=== PATIENT | male | born 1960 | race Caucasian/White ===

== ENCOUNTER 2020-02-22 08:19 | Emergency (ER) | payer OTHER, SELFPAY ==
[2020-02-22 08:25] VITALS: BP 150/81; PULSE 63; RESP 16; TEMP 36.4; O2SAT 98; BMI 31.7
--- NOTE | 2020-02-22 09:12 | DI.CT.S_ITS ---
PROCEDURE: CT CHEST ABD PEL WO CON INDICATIONS: Trauma/fall/attention right side/hips and pelvis TECHNIQUE: After the administration of oral contrast, 5 mm thick sections acquired from the lung apices to the symphysis pubis. 5 mm thick coronal and sagittal reformats acquired, with additional 7 mm coronal MIP reformats through the lungs. For radiation dose reduction, the following was used: automated exposure control, adjustment of mA and/or kV according to patient size. COMPARISON: None. FINDINGS: Image quality: Diagnostic. CHEST: Lungs and pleura: No acute pulmonary opacities. No pleural effusions or pneumothorax. Central and peripheral airways are patent are normal in caliber. Mediastinum: Heart size is normal. No pericardial effusion. No mediastinal adenopathy by CT size criteria. Thoracic aorta and central pulmonary arteries are normal in size. Esophagus is normal in caliber. No hiatal hernia. Chest wall and bones: No axillary or supraclavicular adenopathy by size criteria. Thyroid gland is not enlarged adequately evaluated. No acute fracture or dislocation of the osseous structures of the chest are evident. The vertebral bodies heights are well-maintained throughout the imaged cervicothoracic spine. Minimal bilateral gynecomastia is present. ABDOMEN: Solid organs: Numerous hypodense foci are identified within the liver, which demonstrate imaging characteristics that suggest multiple cysts. No definitive solid liver lesions are evident. However, the solid organs are not adequately evaluated without intravenous contrast. The adrenals, spleen, pancreas, and kidneys are within normal limits. Indication for right renal cyst is noted. Peritoneum and bowel: There may be a small hiatal hernia. The stomach is otherwise unremarkable. Small bowel loops are nondilated. The appendix is well-visualized and normal. There is a moderate amount of residual stool identified within the colon. There is no free fluid, loculated fluid collection, or free air. Nodes and vessels: No retroperitoneal or mesenteric adenopathy by size criteria. Aorta and inferior vena cava are normal in size. Bones: No acute fracture or suspicious osseous lesion is identified. Mild to moderate multilevel facet degenerative changes are noted. The vertebral body heights are well-maintained. PELVIS: Genitourinary: Bladder wall thickness is normal. The prostate is not enlarged. Miscellaneous: There is a small fat containing left inguinal hernia. No right inguinal hernia is evident. There is no free fluid, loculated fluid collection, free air, or lymphadenopathy evident within the pelvis. Bones: No suspicious bony lesions. No acute pelvic fractures are identified. Specifically, there is no fracture evident involving the right hip. The sacroiliac joints are well-maintained. There mild degenerative changes of the pelvic joints. IMPRESSION: 1. No acute fractures of the chest, abdomen, or pelvis. 2. No evidence of solid organ injury is evident on this noncontrast study. 3. Hepatic and right renal cysts. 4. Possible mild constipation. 5. Small fat containing left inguinal hernia. Dictated by: Nael Dhaliwal M.D. on 02/22/2020 at 8:34 Approved by: Nael Dhaliwal M.D. on 02/22/2020 at 8:52
--- NOTE | 2020-02-22 09:14 | ED.LOWEXIN ---
HPI - Extremity Injury (Lower) General Chief Complaint: Extremity Injury, Lower Stated Complaint: rt knee/hip/mid to low back pain x1 day Time Seen by Provider: 02/22/20 08:29 Source: patient Mode of arrival: Wheelchair Limitations: no limitations Related Data Allergies Allergy/AdvReac Type Severity Reaction Status Date / Time No Known Drug Allergies Allergy Verified 02/22/20 08:38 Review of Systems Constitutional Constitutional: Denies chills, Denies fatigue, Denies fever(s), Denies frequent falls, Denies lethargy and Denies weakness Eyes Eyes: Denies change in vision, Denies eye discharge, Denies irritation and Denies loss of vision ENT Ears, Nose, Mouth, and Throat: Denies change in voice, Denies dizziness, Denies neck pain, Denies sore throat and Denies throat swelling Cardiovascular Cardiovascular: Denies chest pain, Denies irregular heart rhythm, Denies lightheadedness, Denies palpitations, Denies dyspnea, Denies dyspnea on exertion and Denies orthopnea Respiratory Respiratory: Denies cough, Denies dyspnea, Denies dyspnea on exertion and Denies wheezing Gastrointestinal Gastrointestinal: Denies abdominal pain, Denies change in bowel habits, Denies diarrhea, Denies nausea and Denies vomiting Musculoskeletal Musculoskeletal: Denies neck pain and Denies numbness Integumentary/Breasts Skin/Breast: Denies pruritus, Denies erythema, Denies rash and Denies wounds Neurologic Neurologic: Denies behavioral changes, Denies confusion, Denies dizziness, Denies frequent falls, Denies loss of vision, Denies numbness and Denies weakness Psychiatric Psychiatric: Denies anxiety, Denies behavioral changes, Denies confusion, Denies depression, Denies homicidal ideation and Denies suicidal ideation Endocrine Endocrine: Denies fatigue, Denies flushing and Denies palpitations Hematologic/Lymphatic Hematologic/Lymphatic: Denies easy bruising Allergic/Immunologic Allergic/Immunologic: Denies urticaria, Denies throat swelling and Denies wheezing Patient History Social History Smoking Status: Never smoker Smoking Status: Never smoker alcohol intake frequency: 0-2 drinks per day Substance Use Type: does not use Exam Initial Vital Signs Initial Vital Signs: Vital Signs Temperature 97.5 F L 02/22/20 08:25 Pulse Rate 63 02/22/20 08:25 Respiratory Rate 16 02/22/20 08:25 Blood Pressure 150/81 H 02/22/20 08:25 Pulse Oximetry 98 02/22/20 08:25 Const General: cooperative and well developed Nutritional Appearance: well nourished [facility] Head: normocephalic and atraumatic Ears: external ears normal and TM's normal bilaterally Nose: external nose normal and No nasal discharge Face and sinus: sinuses nontender, face symmetric, no sinus tenderness and No dry mucous membranes Mouth: oral mucosae normal and moist mucous membranes Teeth and gingiva: dentition normal Throat: tonsils normal and uvula midline Eyes General: appearance normal, both eyes and all related structures Eyelids: eyelids normal Conjunctivae: conjunctivae normal Sclera: sclerae normal Pupils: PERRL EOM: EOM intact bilaterally Neck Neck: normal visual inspection, trachea midline, No lymphadenopathy, No midline deformity and No JVD Lymphatic: No lymphedema Chest Chest: normal inspection of the chest Resp Effort & Inspection: normal respiratory effort, able to speak in complete sentences, no respiratory distress and no use of accessory muscles Auscultation: clear to auscultation bilaterally, no rales, no rhonchi and no wheezes Cardio Rate: regular rate Rhythm: regular rhythm Heart Sounds: no click, no gallops, no murmurs and no rubs Pulses: normal peripheral pulses GI Inspection: non-distended Palpation: soft, no hepatosplenomegaly, No guarding, No pulsatile mass and No tender Auscultation: normal bowel sounds Back/Spine/Pelvis Back: No CVA tenderness Cervical Spine: cervical ROM normal and No pain with cervical ROM Thoracic/Lumbar Spine: thoracic and lumbar spine normal to inspection Skin General: no rashes or lesions noted, No jaundice and No petechiae Neuro General: patient alert, patient oriented x3, gait normal and no focal motor deficits Speech: speech normal Extrem General: full ROM, no clubbing, cyanosis or edema, no pedal edema and no calf tenderness Psych Appearance: well kempt Mental Status: mental status grossly normal Attitude: cooperative Thought Content: normal and suicidality Judgment: judgment good Course Orders Ordered: ED Orders 02/22/20 09:12 CT abdomen pelvis wo con Stat CT chest wo con Stat 02/22/20 09:13 XR knee RT 1to2V Stat XR wrist RT 2V Stat Discontinued Medications Ketorolac Tromethamine (Toradol) 60 mg IM NOW ONE Stop: 02/22/20 09:07 Vital Signs Vital signs: Vital Signs - 8 hr 02/22/20 08:25 Temperature 97.5 F L Pulse Rate 63 Respiratory Rate 16 Blood Pressure 150/81 H Pulse Oximetry 98
--- NOTE | 2020-02-22 09:15 | ED_ITS ---
HPI - Fall General Chief Complaint: Extremity Injury, Lower Stated Complaint: rt knee/hip/mid to low back pain x1 day Time Seen by Provider: 02/22/20 08:29 Source: patient and family Mode of arrival: Wheelchair History of Present Illness HPI Narrative: Patient complains pain to the right lower back right posterior ribs right wrist and pain to the right knee since falling off his truck yesterday. Denies denies hitting head. Denies any chest abdominal pain. Denies any head or neck pain. No altered mental status. No numbness tingling. Right knee feels weak when he stands up. No saddle paresthesia. No bowel or bladder incontinence. No feet or limb numbness or tingling. Related Data Previous Rx's Medication Instructions Recorded cyclobenzaprine 10 mg PO TID PRN #20 tab 02/22/20 ibuprofen 600 mg PO Q6H PRN #20 tab 02/22/20 Allergies Allergy/AdvReac Type Severity Reaction Status Date / Time No Known Drug Allergies Allergy Verified 02/22/20 08:38 Review of Systems Review of Systems Narrative: GENERAL: Denies chills, fatigue, malaise, fever, sweats. HEENT: Denies sinus pain, ear pain, sore throat, difficulty swallowing, dizziness. RESPIRATORY: Denies dyspnea, cough, wheezing, hemoptysis, sputum. CARDIOVASCULAR: Denies chest pain, palpitations, orthopnea, edema, GASTROINTESTINAL: Denies nausea, vomiting, abdominal pain, diarrhea, constipation, melena. : Denies dysuria, frequency, incontinence, hematuria, urinary retention. MUSCULOSKELETAL: Complains back pain/right knee pain/right hip pain SKIN: Denies rash, skin lesions, or other NEUROLOGIC: Denies weakness, headache, numbness, change in speech, confusion, se izures, incoordination. PSYCHIATRIC: No concerning psychosocial issues. ROS Unobtainable: All systems reviewed & are unremarkable except as noted in HPI and below Patient History Social History Smoking Status: Never smoker Smoking Status: Never smoker alcohol intake frequency: 0-2 drinks per day Substance Use Type: does not use Exam Narrative Exam Narrative: GENERAL: patient appears stated age. Well-nourished, well- developed patient, in no distress, not toxic short pants and socks and shoes removed HEAD: Atraumatic. Normocephalic. EYES: Pupils equal round and reactive. Extraocular motions intact. No scleral icterus. No injection or drainage. ENT: Nose without bleeding, purulent drainage. Throat without erythema, tonsillar hypertrophy or exudate. Airway patent. NECK: Trachea midline. Non tender no midline tenderness or step-off. Full activ e range of motion without numbness tingling weakness or pain. CARDIOVASCULAR: Regular rate and rhythm without murmurs, gallops, or rubs. Chest nontender RESPIRATORY: Clear to auscultation. Breath sounds equal bilaterally. No wheezes, rales, or rhonchi. GASTROINTESTINAL: Abdomen soft, non-tender, nondistended. EXTREMITIES: Mild tenderness to the right hip with overlying small bruise but full active range of motion of the hip without pain. Nontender right knee no edema no erythema no skin injury. On standing at bedside right knee feels weak and unable to bear weight. Right leg warm soft and pain with light touch intact in toes. Strong right patellar reflex. Strong pedal pulse. Pelvis is stable nontender. BACK: Nontender without deformity or crepitance. No flank tenderness. Tender ness the right lower posterior ribs but no crepitus or flail. No skin injury. There is no no midline tenderness or step-off of the thoracic or lumbar spine. Mild right lower back paralumbar muscle tenderness NEURO: AOx3. Stood patient bedside but unable to bear weight on the right foot due to right knee feeling weak. Able to bring his right foot fully off the floor with no footdrop SKIN: No rash or erythema of visible areas Initial Vital Signs Initial Vital Signs: Vital Signs Temperature 97.5 F L 02/22/20 08:25 Pulse Rate 63 02/22/20 08:25 Respiratory Rate 16 02/22/20 08:25 Blood Pressure 150/81 H 02/22/20 08:25 Pulse Oximetry 98 02/22/20 08:25 Course Course Course Narrative: Time 11:36 a.m.. After Toradol shot patient able to stand. Able to walk no foot drop. However right knee still feels weak. Spoke with patient and . Will need to follow up with his primary care physician's week for recheck and possible MRI if not improving. He has used Flexeril past for muscle relief. Orders Ordered: Discontinued Medications Ketorolac Tromethamine (Toradol) 60 mg IM NOW ONE Stop: 02/22/20 09:07 Last Admin: 02/22/20 09:17 Dose: 60 mg Documented by: MICHELLE Vital Signs Vital signs: Vital Signs - 8 hr 02/22/20 11:19 Pulse Rate 55 L Respiratory Rate 16 Blood Pressure [Left Arm] 126/72 Pulse Oximetry 98 MDM - Fall Differential Diagnosis Differential diagnosis: Likely other (Wrist sprain right hip contusion lumbar strain lumbar disc herniation rib fracture) Imaging Data CT scan - abdomen/pelvis: Radiologist's Impression: [address] [address] [address] Scan Report Signed Patient: Dioni Kirk GMR#: [id number] : 1960cct:[id number] Age/Sex: 60 / MDate of Service: 02/22/20 Loc: ED Accession Number: [id number] Procedure: CT chest abd pel wo con Ordering Provider: Jl Ross MD PROCEDURE: CT CHEST ABD PEL WO CON INDICATIONS: Trauma/fall/attention right side/hips and pelvis TECHNIQUE: After the administration of oral contrast, 5 mm thick sections acquired from the lung apices to the symphysis pubis. 5 mm thick coronal and sagittal reformats acquired, with additional 7 mm coronal MIP reformats through the lungs. For radiation dose reduction, the following was used: automated exposure control, adjustment of mA and/or kV according to patient size. COMPARISON: None. FINDINGS: Image quality: Diagnostic. CHEST: Lungs and pleura: No acute pulmonary opacities. No pleural effusions or pneumothorax. Central and peripheral airways are patent are normal in caliber. Mediastinum: Heart size is normal. No pericardial effusion. No mediastinal adenopathy by CT size criteria. Thoracic aorta and central pulmonary arteries are normal in size. Esophagus is normal in caliber. No hiatal hernia. Chest wall and bones: No axillary or supraclavicular adenopathy by size criteria. Thyroid gland is not enlarged adequately evaluated. No acute fracture or dislocation of the osseous structures of the chest are evident. The vertebral bodies heights are well-maintained throughout the imaged cervicothoracic spine. Minimal bilateral gynecomastia is present. ABDOMEN: Solid organs: Numerous hypodense foci are identified within the liver, which demonstrate imaging characteristics that suggest multiple cysts. No definitive solid liver lesions are evident. However, the solid organs are not adequately evaluated without intravenous contrast. The adrenals, spleen, pancreas, and kidneys are within normal limits. Indication for right renal cyst is noted. Peritoneum and bowel: There may be a small hiatal hernia. The stomach is otherwise unremarkable. Small bowel loops are nondilated. The appendix is well- visualized and normal. There is a moderate amount of residual stool identified within the colon. There is no free fluid, loculated fluid collection, or free air. Nodes and vessels: No retroperitoneal or mesenteric adenopathy by size criteria. Aorta and inferior vena cava are normal in size. Bones: No acute fracture or suspicious osseous lesion is identified. Mild to moderate multilevel facet degenerative changes are noted. The vertebral body heights are well-maintained. PELVIS: Genitourinary: Bladder wall thickness is normal. The prostate is not enlarged. Miscellaneous: There is a small fat containing left inguinal hernia. No right inguinal hernia is evident. There is no free fluid, loculated fluid collection, free air, or lymphadenopathy evident within the pelvis. Bones: No suspicious bony lesions. No acute pelvic fractures are identified. Specifically, there is no fracture evident involving the right hip. The sacroiliac joints are well-maintained. There mild degenerative changes of the pelvic joints. IMPRESSION: 1. No acute fractures of the chest, abdomen, or pelvis. 2. No evidence of solid organ injury is evident on this noncontrast study. 3. Hepatic and right renal cysts. 4. Possible mild constipation. 5. Small fat containing left inguinal hernia. Dictated by: Nael Dhaliwal M.D. on 02/22/2020 at 8:34 Approved by: Nael Dhaliwal M.D. on 02/22/2020 at 8:52 Extremity x-ray #1: My Impression: Right wrist Radiologist's Impression: [address] [address] XRay Report Signed Patient: Dioni Kirk GMR#: [id number] : 1Acct:[id number] Age/Sex: 60 / MDate of Service: 02/22/20 Loc: ED Accession Number: [id number] Procedure: XR wrist RT 2V Ordering Provider: Jl Ross MD PROCEDURE: XR WRIST RT 2V INDICATIONS: Fall/pain TECHNIQUE: 3 views of the wrist were acquired. COMPARISON: None. FINDINGS: Bones: No fractures or dislocations. No suspicious bony lesions. There appear to be degenerative cystic changes involving the radial aspect of the lunate. Soft tissues: No suspicious soft tissue calcifications. IMPRESSION: No acute osseous abnormality of the right wrist. Dictated by: Nael Dhaliwal M.D. on 02/22/2020 at 9:06 Approved by: Nael Dhaliwal M.D. on 02/22/2020 at 9:06 Extremity x-ray #2: My Impression: Right knee Radiologist's Impression: [place] [address] XRay Report Signed Patient: Dioni Kirk GMR#: [id number] : 1Acct:[id number] Age/Sex: 60 / MDate of Service: 02/22/20 Loc: ED Accession Number: [id number] Procedure: XR knee RT 1to2V Ordering Provider: Jl Ross MD PROCEDURE: XR KNEE RT 1TO2V INDICATIONS: Fall/pain TECHNIQUE: 3 views of the knee were acquired. COMPARISON: None. FINDINGS: Bones: Degenerative changes of the right knee appear to be most pronounced within the patellofemoral compartment with small marginal osteophytes noted. In the fat at the quadriceps tendon insertion on the patella is present. Soft tissues: No joint effusion. No suspicious soft tissue calcifications. IMPRESSION: No acute osseous abnormality of the right knee. Dictated by: Nael Dhaliwal M.D. on 02/22/2020 at 9:05 Approved by: Nael Dhaliwal M.D. on 02/22/2020 at 9:05 Discharge Plan Departure Patient Disposition: Home Clinical Impression: Sprain and strain of right wrist Contusion of lower extremity Qualifiers: Encounter type: initial encounter Laterality: right Qualified Code(s): S80.11XA - Contusion of right lower leg, initial encounter Contusion of rib on right side Qualifiers: Encounter type: initial encounter Qualified Code(s): S20.211A - Contusion of right front wall of thorax, initial encounter Acute lumbar myofascial strain Qualifiers: Encounter type: initial encounter Qualified Code(s): S39.012A - Strain of muscle, fascia and tendon of lower back, initial encounter Discharge Date/Time: 02/22/20 11:50 Instructions: DI for Contusion, DI for Rib Contusion, DI for Wrist Strain, DI for Back Strain or Sprain Activity Restrictions/Additional Instructions: See family doctor this week for recheck. Return if worse. May need outpatient MRI of the lower back and pelvis/hip if not improving. Prescriptions: New cyclobenzaprine 10 mg tablet 10 mg PO TID PRN (Reason: muscle spasm) Qty: 20 RF: 0 ibuprofen 600 mg tablet 600 mg PO Q6H PRN (Reason: pain) Qty: 20 RF: 0 Referrals: Erick Wren ARNP [Primary Care Provider] -
[2020-02-22] MEDS: KETOROLAC 60 MG/2 ML VIAL IM (09:17)
[2020-02-22 11:19] VITALS: BP 126/72; PULSE 55; RESP 16; O2SAT 98
== END 2020-02-22 11:50 | disposition home or self-care (01) ==
PROVIDERS: Emergency Provider Emergency Medicine; PCP Registered Nurse
DX: S20.211A Contusion of right front wall of thorax, initial encounter (principal); S39.012A Strain of muscle, fascia and tendon of lower back, initial encounter; S80.11XA Contusion of right lower leg, initial encounter; S63.501A Unspecified sprain of right wrist, initial encounter; S66.911A Strain of unspecified muscle, fascia and tendon at wrist and hand level, right hand, initial encounter; W19.XXXA Unspecified fall, initial encounter
CPT/HCPCS: 71250; 73100; 73560; 74176; 96372; 99284; 99285; J1885

== ENCOUNTER 2025-01-24 19:21 | Emergency (ER) | payer OTHER, SELFPAY ==
[2025-01-24 19:24] VITALS: BP 161/82; PULSE 55; RESP 18; TEMP 36.8; O2SAT 97; BMI 34.0
--- NOTE | 2025-01-24 19:29 | DI.RAD.S_ITS ---
PROCEDURE: XR FOOT RT MIN 3V INDICATIONS: foot punctured by metal garden tool TECHNIQUE: 3 views of the foot were acquired. COMPARISON: None. FINDINGS: No acute fracture or dislocation. The Lisfranc interval is preserved on the nonweightbearing view. 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 Dysmorphic appearance of the 5th digit proximal phalangeal medial base, likely secondary to a chronic, healed fracture. No radiopaque foreign object in the field of view. The other joint spaces are preserved. Faint Achilles calcaneal enthesopathy. IMPRESSION: No acute fracture, dislocation, or radiopaque foreign object. Dictated by: David Metcalf M.D. on 01/24/2025 at 19:49 Approved by: David Metcalf M.D. on 01/24/2025 at 19:51
--- NOTE | 2025-01-24 20:21 | ED.WOUNDLAC ---
HPI - Wound/Laceration General Chief Complaint: Wound/Laceration Stated Complaint: impaled right foot Time Seen by Provider: 01/24/25 19:57 Source: patient Mode of arrival: Ambulatory History of Present Illness HPI narrative: 64-year-old male was wearing sports footwear at his home when he stepped on a hand-held garden rake that was nataliya outside, had puncture 1 through his footwear, sustained puncture wound to the lateral aspect 5th MTP region of the foot. No swelling or drainage. No swelling in the top of his foot. No other injuries. Last tetanus more than 5 years ago. NKDA. Related Data Home Medications Medication Instructions Recorded Confirmed amlodipine 5 mg tablet 5 mg PO DAILY 10/29/19 10/29/19 Previous Rx's Medication Instructions Recorded cyclobenzaprine 10 mg tablet 10 mg PO TID PRN muscle spasm #20 02/22/20 tabs ibuprofen 600 mg tablet 600 mg PO Q6H PRN pain #20 tabs 02/22/20 ciprofloxacin HCl 500 mg tablet 500 mg PO BID 7 days #14 tabs 01/24/25 Allergies Allergy/AdvReac Type Severity Reaction Status Date / Time No Known Drug Allergies Allergy Verified 04/14/20 09:33 Patient History Family History Father Hypertension Mother Hypertension Family/Other Restless leg syndrome Alcohol abuse Social History (System 04/14/20 @ 09:33 by Katlin Daily) Smoking Status: Never smoker alcohol intake: current (rare) caffeine: Yes Smoking Status: Never smoker alcohol intake frequency: 0-2 drinks per day Exam Narrative Exam Narrative: GENERAL: Well-developed patient, in mild distress. HEAD: Atraumatic. Normocephalic. EYES: Pupils equal round and reactive. Extraocular motions intact. No scleral icterus. No injection or drainage. ENT: Nose without bleeding, purulent drainage. Throat without erythema, tonsillar hypertrophy or exudate. Airway patent. NECK: Trachea midline. Non tender CARDIOVASCULAR: Regular rate and rhythm without murmurs, gallops, or rubs. RESPIRATORY: Clear to auscultation. Breath sounds equal bilaterally. No wheezes, rales, or rhonchi. GASTROINTESTINAL: Abdomen soft, non-tender, nondistended. EXTREMITIES: Left plantar foot puncture wound caudad to the 5th MTP, no palpable foreign body, no bleeding or drainage. No significant swelling to the plantar aspect of the foot. No obvious through and through wound. BACK: Nontender without deformity or crepitance. No flank tenderness. NEURO: AOx3. Motor functions grossly nonfocal SKIN: No rash or erythema of visible areas Initial Vital Signs Initial Vital Signs: Vital Signs Temperature 98.3 F 01/24/25 19:24 Pulse Rate 55 L 01/24/25 19:24 Respiratory Rate 18 01/24/25 19:24 Blood Pressure 161/82 H 01/24/25 19:24 Pulse Oximetry 97 01/24/25 19:24 Oxygen Delivery Method Room Air 01/24/25 19:24 Course Orders Ordered: ED Orders 01/24/25 19:29 XR foot RT min 3V Stat Discontinued Medications Ciprofloxacin (Ciprofloxacin 250 Mg Tablet) 500 mg PO NOW ONE Stop: 01/24/25 20:36 Last Admin: 01/24/25 21:03 Dose: 500 mg Documented By: NILES Diphtheria/Tetanus/Acell Pertussis (Tet,Diph,Pertuss(Acell),Vac/Pf 0.5 Ml Syringe) 0.5 ml IM .ONCE ONE Stop: 01/24/25 21:03 Last Admin: 01/24/25 21:03 Dose: 0.5 ml Documented By: NILES Tetanus/Diphtheria Toxoids (Tetanus Diphtheria Toxoids 0.5 Ml Vial) 0.5 ml IM .ONCE ONE Stop: 01/24/25 20:38 Last Admin: 01/24/25 21:15 Dose: Not Given Documented By: Vital Signs Vital signs: Vital Signs - 8 hr 01/24/25 19:24 01/24/25 21:16 Temperature 98.3 F Pulse Rate 55 L 58 L Respiratory Rate 18 16 Blood Pressure 161/82 H 144/77 H Pulse Oximetry 97 100 Oxygen Delivery Method Room Air Room Air MDM - Wound/Laceration Imaging Data Extremity x-ray #1: Radiologist's Impression: [address] [address] XRay Report Signed Patient: Dioni Kirk MR#: [id number] : 1960 Acct:[id number] Age/Sex: 64 / M Date of Service: 01/24/25 Loc: ED Accession Number: [id number] Procedure: XR foot RT min 3V Ordering Provider: Estrada Kyle MD PROCEDURE: XR FOOT RT MIN 3V INDICATIONS: foot punctured by metal garden tool TECHNIQUE: 3 views of the foot were acquired. COMPARISON: None. FINDINGS: No acute fracture or dislocation. The Lisfranc interval is preserved on the nonweightbearing view. 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 Dysmorphic appearance of the 5th digit proximal phalangeal medial base, likely secondary to a chronic, healed fracture. No radiopaque foreign object in the field of view. The other joint spaces are preserved. Faint Achilles calcaneal enthesopathy. IMPRESSION: No acute fracture, dislocation, or radiopaque foreign object. Dictated by: David Metcalf M.D. on 01/24/2025 at 19:49 Approved by: David Metcalf M.D. on 01/24/2025 at 19:51 MDM Narrative Medical decision making narrative: 64-year-old male had puncture wound through footwear of [employer] rake this afternoon, while wearing footwear. Plantar puncture wound noted. IM Tetanus updated. X-rays done from triage showed no fracture or foreign body material. See radiology report. We discussed coring out procedure looking for any retained foreign body, declined. We will start anti-pseudomonal antibiotics, 1st dose oral ciprofloxacin now, further oral ciprofloxacin prescription sent to his pharmacy. Wound check advised early next week, he has welding machine operator helper gas in his home [place], follow up with the welding machine operator helper [employer] early next week, might need incision and drainage of abscess formation, could have retained footwear material in theory. Patient expressed understanding. Advised to take antibiotics as prescribed. Discharge Plan Departure Patient Disposition: Home Clinical Impression: Puncture wound of plantar aspect of foot Instructions: DI for Puncture Wound Activity Restrictions/Additional Instructions: Plantar puncture wound of the foot through footwear. At risk for moist environment Pseudomonas bacterial injection infection. In theory puncture wound could carry pieces of your sock and/or footwear rubber up into the foot. We discussed of front primary coring out like procedure, declined for now. We will start antibiotics against Pseudomonas bacteria with ciprofloxacin oral dose, 1st dose emergency department, prescription sent to your pharmacy. Take antibiotics as directed. Follow up with your welding machine operator [employer] on Sunday to reassess. You might need incision and drainage if she would develop an abscess, and sometimes her small foreign body/material identified deep into the foot. Hopefully you were not develop any signs and symptoms of any infection at all, not require any procedures at all. Follow up with your welding machine operator helper gas on Sunday as above. Return to this/nearest emergency department for any change worsening symptoms or any concerns prior. Local orthopedic surgeon on-call Dr. Fabiana Sofia office information also provided, if you can not make arrangements with your welding machine operator [employer] on Sunday. Prescriptions: New ciprofloxacin HCl 500 mg tablet 500 mg PO BID 7 Days Qty: 14 0RF No Action cyclobenzaprine 10 mg tablet 10 mg PO TID PRN (Reason: muscle spasm) Qty: 20 0RF ibuprofen 600 mg tablet 600 mg PO Q6H PRN (Reason: pain) Qty: 20 0RF amlodipine 5 mg tablet 5 mg PO DAILY Referrals: Erick Wren ARNP [Primary Care Provider] - Mary Sofia MD [Physician] - Stand Alone Forms: Patient Portal/API/Survey
[2025-01-24] MEDS: CIPROFLOXACIN 250 MG TABLET 500 MG PO (21:03)
[2025-01-24] MEDS: TET,DIPH,PERTUSS(ACELL),VAC/PF 0.5 ML SYRINGE IM (21:03)
[2025-01-24 21:16] VITALS: BP 144/77; PULSE 58; RESP 16; O2SAT 100
== END 2025-01-24 21:17 | disposition home or self-care (01) ==
PROVIDERS: Emergency Provider Emergency Medicine; PCP Registered Nurse
DX: S91.331A Puncture wound without foreign body, right foot, initial encounter (principal); W45.8XXA Other foreign body or object entering through skin, initial encounter; Z23 Encounter for immunization
CPT/HCPCS: 73630; 90471; 99283; 99284; 90715